=== PATIENT | male | born 1995 | race Caucasian/White ===

== ENCOUNTER 2023-12-02 11:04 | Emergency (ER) | payer BC, SELFPAY ==
[2023-12-02 11:12] VITALS: PULSE 72; O2SAT 99
[2023-12-02 11:15] VITALS: BP 151/95; PULSE 71; RESP 14; TEMP 36.8; O2SAT 100; BMI 29.8
--- NOTE | 2023-12-02 11:21 | CT_ITS ---
FINAL REPORT TECHNIQUE: After the administration of intravenous contrast, axial images were obtained through the abdomen and pelvis by computed tomography. This study was performed with technique to keep radiation doses as low as reasonably achievable, (ALARA). Individualized dose reduction techniques using automated exposure control or adjustment of the MA and/or KV according to the patient's size were employed. CLINICAL HISTORY: RLQ andRUQ abd pain FINDINGS: Abdomen: The lung bases are clear. The liver is fatty infiltrated. There is mild, nonspecific gallbladder wall thickening. The spleen is unremarkable. The adrenals are normal. The pancreas is unremarkable. The kidneys enhance appropriately. The aorta is normal in caliber. There is no free fluid or adenopathy. Pelvis: The appendix is not identified. There are no secondary findings of appendicitis. The urinary bladder is unremarkable. There is no free fluid or adenopathy. IMPRESSION: Fatty infiltration of the liver. Mild, nonspecific gallbladder wall thickening. Reviewed, Interpreted and Dictated by Husam Gonzalez III, MD Transcribed by Torrie Parrish Authenticated and [facility]
[2023-12-02 11:23] LABS: Microscopic, Urine URINE MICROSCOPIC (MICROSCOPIC)
[2023-12-02 11:29] LABS: Basophils # 0.1 K/mm3 (0-0.2); Basophils % 1.2 % (0.1-2.0); Eosinophils # 0.2 K/mm3 (0.0-0.4); Eosinophils % 2.6 % (0.1-12.0); Hematocrit 40.1 % (42.0-52.0); Hemoglobin 13.8 g/dL (14.1-18.0); Lymphocytes # 3.6 K/mm3 (0.7-4.5); Mean Corpuscular HGB Conc 34.4 g/dL (31.8-35.4); Mean Corpuscular Hemoglobin 30.9 pg (27.0-31.2); Mean Platelet Volume 7.7 fl (7.4-10.4); Monocytes % 10.4 % (1.7-9.3); Neutrophils # 4.6 K/mm3 (1.8-7.8); Neutrophils % 47.9 % (37.0-80.0); Platelet Count 274 K/mm3 (142-424); Red Blood Count 4.45 M/mm3 (4.60-6.20); Red Cell Distribution Width 13.8 % (11.5-17.5); White Blood Count 9.5 K/mm3 (4.8-10.8)
[2023-12-02 11:29] LABS: Appearance,Urine CLEAR (Clear); Bilirubin,Urine Negative (Negative); Blood, Urine Negative (Negative); Color,Urine YELLOW (Yellow); Glucose,Urine (UA) Negative (Negative); Ketones,Urine Negative (Negative); Leukocyte Esterase,Urine Negative (Negative); Nitrate,Urine Negative (Negative); PH,Urine 6.5 (5.0-8.5); Protein,Urine Negative (Negative); Specific Gravity, Urine 1.025 (1.005-1.030)
[2023-12-02] MEDS: KETOROLAC 30MG/ML VIAL 15 MG IV (11:36)
[2023-12-02] MEDS: ACETAMINOPHEN 1,000MG/100ML VIAL 1000 MG IV (11:36)
[2023-12-02 11:44] LABS: Chloride 101 mmol/L (98-107); Sodium 138 mmol/L (136-145)
[2023-12-02 11:45] LABS: Potassium 4.2 mmoL/L (3.5-5.1)
[2023-12-02 11:47] LABS: Alanine Aminotransferase 473 U/L (12-78); Albumin Level 4.2 g/dl (3.5-5.0); Albumin/Globulin Ratio 1.4 (1.1-1.8); Alkaline Phosphatase 115 U/L (38-126); Anion Gap 9.2 mEq/L (5-15); Aspartate Amino Transferase 323 U/L (17-59); Bilirubin,Total 0.6 mg/dl (0.2-1.3); Blood Urea Nitrogen 15 mg/dl (9-20); Calcium 9.1 mg/dl (8.4-10.2); Carbon Dioxide 32 mmol/L (22.0-30.0); Creatinine Clearance Estimated 114 mL/min (50-200); Estimated Glomerular Filt Rate 88 ml/min (>60); GFR (African American) 107 ML/MIN (>60); Globulin 2.9 g/dL (1.3-3.2); Glucose 109 mg/dl (74-100); Lipase 51 U/L (23-300); Total Protein,Serum 7.1 g/dl (6.3-8.2)
[2023-12-02 11:48] LABS: Lactic Acid 1.1 mmol/L (0.7-2.1)
--- NOTE | 2023-12-02 11:54 | ED_ITS ---
Discharge Plan Disposition Patient Disposition: Home, Self-Care Prescriptions Prescriptions: No Action No Known Home Medications Referrals Follow up/Referrals: Jeff Orellana MD [Primary Care Provider] - See instructions Activity Restrictions/Add. Instructions Additional Instructions/Restrictions: Follow-up with hepatology at [facility]. They will contact you to set up an appointment. Call your family doctor to establish care for this visit to the emergency department and schedule follow-up within 48 hours to ensure improvement. If you have any worsening of your condition or any other concerning signs or symptoms, return to the emergency department or your primary care doctor for further evaluation. Clinical Impressions Clinical Impression: Chronic hepatitis C, Abdominal pain, acute, right upper quadrant Instructions Patient Instructions: DI for Acute Abdominal Pain Discharge ED Provider: David Gomez General Adult HPI General Chief complaint: Abdominal Pain Stated complaint: Pain R abd and back, dizzy Time Seen by Provider: 12/02/23 11:19 Mode of Arrival: Wheelchair Source of Information: Patient Limitations: No Limitations Description of Symptoms (Recalled from ER Triage Doc. by RN): pt c/o R lower back pain, R flank pain and RLQ pain. pt reports the pain is 8/10 and shooting in nature. pt reports this has been ongoing x5 yrs. pt denies N/V/D or urinary symptoms. pt was seen in [facility] today, they sent him here for the ABD pain. pt reports he was in [facility] and dx with hep C that he was treated for. pt reports he then had more tattoo work done and was diagnosed a second time with hep C that has not been treated. History of Present Illness HPI narrative: Please note that above description of symptoms, in this electronic medical record under categorization of recalled from ER triage doctor by RN are reflective of an initial nursing assessment, however, is not reflective of my full history and physical exam that was personally taken and clarified. Consequentially, this preceding description of symptoms, which may include the patient's categorized chief complaint in the EMR, do not reflect my personal clinical impression, and the ultimate description of history of present illness and patient stated complaints should be deferred to this section of the note. Unless stated otherwise or congruent with this section of the note, additional signs, symptoms, or incongruence should be interpreted as inaccurate with my clinical impression. Related Data Home Medications Medication Instructions Recorded Confirmed No Known Home Medications 12/02/23 12/02/23 Allergies Allergy/AdvReac Type Severity Reaction Status Date / Time No Known Allergies Allergy Verified 12/02/23 11:20 [facility] Disclaimer: The information contained in this section may have been updated after the patient was seen, as this information can be updated by other users. Medical History (Updated 12/02/23 @ 14:07 by David Gomez MD) ADHD PTSD (post-traumatic stress disorder) Hepatitis C Surgical History (Updated 12/02/23 @ 09:44 by Sidra Marr MA) No history of previous surgery Social History (Updated 12/02/23 @ 09:45 by Sidra Marr MA) Smoking Status: Never smoker alcohol intake: never current occupational status: employed Travel in the last 8 weeks: None ROS Obtained: Yes All systems reviewed & no additional complaints except as documented Physical Exam General General appearance: alert and in no apparent distress Head Head exam: atraumatic and normocephalic Eye Eye exam: Present normal appearance, PERRL and EOMI ENT ENT exam: Present mucous membranes moist Neck Neck exam: Present normal inspection, full ROM and trachea midline Respiratory Respiratory exam: Absent respiratory distress, wheezes, stridor, accessory muscle use or prolonged expiratory phase Cardiovascular Cardiovascular exam: Present normal rhythm Abdominal Exam Abdominal exam: Present soft and tenderness; Absent distention, guarding, rebound or rigidity Extremities Exam Extremities exam: Absent edema Neurological Exam Neurological exam: Present alert, oriented X3, CN II-XII intact and normal gait; Absent motor sensory deficit Skin Skin exam: Present warm and dry; Absent diaphoresis or erythema Medical Decision Making Medical Records Medical records reviewed: Yes I reviewed the patient's medical records. Kurtis Inquiry Pt receiving controlled substance: No Kurtis was queried for this patient: No Vital Signs: 12/02/23 11:12 12/02/23 11:15 Temperature 98.2 F Temperature Source Oral Pulse Rate 72 Pulse Rate [Left] 71 Respiratory Rate 14 Blood Pressure [Right Arm] 151/95 H Blood Pressure Mean [Right Arm] 113 Blood Pressure Source [Right Arm] Automatic Cuff Blood Pressure Position [Right Arm] Sitting 02 Sat by Pulse Oximetry 99 100 Lab Data Lab Results 12/02/23 11:10: Urine Color Yellow, Urine Appearance Clear, Urine pH 6.5, Ur Specific [place] 1.025, Urine Protein Negative, Urine Glucose (UA) Negative, Urine Ketones Negative, Urine Blood Negative, Urine Nitrate Negative, Urine Bilirubin Negative, Urine Urobilinogen 1.0, Ur Leukocyte Esterase Negative, Urine RBC None, Urine WBC None, Ur Squamous Epith Cells Occasional, Amorphous Sediment Trace, Urine Bacteria None 12/02/23 11:20: WBC 9.5, RBC 4.45 L, Hgb 13.8 L, Hct 40.1 L, MCV 90.0, MCH 30.9, MCHC 34.4, RDW 13.8, Plt Count 274, MPV 7.7, Neut % (Auto) 47.9, Lymph % (Auto) 38.0, [place] % (Auto) 10.4 H, Eos % (Auto) 2.6, Baso % (Auto) 1.2, Neut # (Auto) 4.6, Lymph # (Auto) 3.6, [place] # (Auto) 1.0, Eos # (Auto) 0.2, Baso # (Auto) 0.1, Sodium 138, Potassium 4.2, Chloride 101, Carbon Dioxide 32 H, Anion Gap 9.2, BUN 15, Creatinine 1.00, Estimated Creat Clear 114, Estimated GFR 88, Est GFR ( Amer) 107, Glucose 109 H, Lactate 1.1, Calcium 9.1, Total Bilirubin 0.6, AST 323 H*, ALT 473 H*, Alkaline Phosphatase 115, Total Protein 7.1, Albumin 4.2, Globulin 2.9, Albumin/Globulin Ratio 1.4, Lipase 51 12/02/23 11:20 12/02/23 11:20 Orders (Tests/Meds): ED MEDICATIONS Generic Name Dose Route Start Last Admin Trade Name Freq PRN Reason Stop Dose Admin Sodium Chloride 10 ml 12/02/23 12:05 12/02/23 12:07 Sodium Chloride 0.9% 10ml Syr (Rad Only) IV 01/01/24 12:04 10 ml NEEDED PRN Administration Maintain IV Site Discontinued Medications Generic Name Dose Route Start Last Admin Trade Name Freq PRN Reason Stop Dose Admin Acetaminophen 1,000 mg 12/02/23 11:20 12/02/23 11:36 Acetaminophen 1,000mg/100ml Vial IV 12/02/23 11:21 1,000 mg ONCE ONE Administration Iopamidol 75 ml 12/02/23 12:05 12/02/23 12:07 Iopamidol-370 (76%);100ml Bottle IV 12/02/23 12:06 75 ml ONCE ONE Administration Ketorolac Tromethamine 15 mg 12/02/23 11:20 12/02/23 11:36 Ketorolac 30mg/Ml Vial IV 12/02/23 11:21 15 mg ONCE ONE Administration ORDERS Category Date Time Status CT abdomen pelvis w con Stat Cat Scan 12/02/23 11:21 Completed POCUS Point of Care (ER Only) Stat Exams 12/02/23 13:48 Completed CBC w/Auto Diff [Complete Blood Count Auto Diff] Stat Lab 12/02/23 11:20 Completed CMP [Comprehensive Metabolic Panel] Stat Lab 12/02/23 11:20 Completed HCV RNA PCR, Quant Stat Lab 12/02/23 11:30 Received Hepatitis Panel Stat Lab 12/02/23 11:30 Received Lactic Acid Stat Lab 12/02/23 11:20 Completed Lipase Stat Lab 12/02/23 11:20 Completed UA [Urinalysis and Microscopic] Stat Lab 12/02/23 11:10 Completed Medical Decision Narrative: 28-year-old male history of hep C from [facility] tattoo previously treated in 2019 and reinfected with hepatitis C presenting with right-sided chest wall pain/right upper quadrant pain. Been going on the past few days, getting worse. Patient states the pain is so severe he is having trouble walking, talking, breathing. No nausea or vomiting, fevers or chills, last bowel movement today was normal for him, no blood in his stool. No excessively dark urine. No unintended weight loss, night sweats, or otherwise. History was obtained via conversation with patient and chart review. On arrival, patient hemodynamically stable, alert, oriented x4, appropriate, GCS 15, moving all extremities spontaneously, pupils equal and reactive to light. Full physical exam performed and significant for appears to be in mild distress secondary to pain. Soft, tender right upper quadrant. No overlying skin changes. No guarding or signs of peritonitis. Mild right flank tenderness. Differential includes hepatitis, periostitis, cholecystitis, nephrolithiasis, pyelonephritis, gastritis, PUD, among others. Patient was given Toradol and acetaminophen for symptomatic management and correction of underlying abnormalities. Workup independently interpreted and significant for Nonactionable CBC. Chemistry with normal electrolytes, lactate negative. LFTs concerning for hepatitis with AST 323, ALT elevated at 473. Patient's bilirubin and alkaline phosphatase normal. Lipase normal. Urinalysis negative. CT abdomen and pelvis demonstrated no acute intra-abdominal pathology. Patient does have inflammation and some scarring of the liver with fatty infiltration, but otherwise normal. See radiology read for full review of final results. [id number] bedside ultrasound without acute intra-abdominal right upper quadrant pathology. Normal echogenicity of the liver. On reevaluation, patient resting comfortably in bed. Hepatitis C team at [facility] was contacted, case was discussed at length. Patient needs to follow-up with hepatology specifically at [facility] given reinfection. Hepatology at [facility] was contacted and case was discussed at length, patient appropriate for outpatient management and follow-up with them. Given patient presentation, workup, history, this most likely represents acute hepatitis right upper quadrant pain in the setting of chronic hepatitis C. Gastroenterology [facility] agreeable to outpatient management, will call patient to schedule follow-up appointment. Patient is agreeable this plan because patient at baseline without signs or symptoms of clinical decompensation, deemed appropriate for discharge. Results were relayed to patient who voiced understanding and were agreeable to outpatient management and follow up. I discussed my clinical impression with patient and answered all questions. At this time, the evidence for any other entities in the differential is insufficient to warrant any further testing or ED observation. This was explained as well. Advisory was given that persistent or worsening symptoms require further evaluation. I confirmed the understanding of this discussion. Chair Pad Maker disclaimer Much of this encounter note is an electronic director packaging spoken language to printed text. Electronic director packaging of the spoken language may permit errors. Although I have reviewed the note, some errors may still exist. Critical Care Critical Care Time Critical Care Time: No
[2023-12-02 11:58] LABS: Amorphous Sediment,Urine Trace /lpf; Squamous Epithelial Cell,Urine Occasional #/hpf (0-5)
[2023-12-02] MEDS: SODIUM CHLORIDE 0.9% 10ML SYR (RAD ONLY) 10 ML IV (12:07)
[2023-12-02] MEDS: IOPAMIDOL-370 (76%);100ML BOTTLE 75 ML IV (12:07)
[2023-12-02 14:00] VITALS: BP 125/93; PULSE 67; O2SAT 99
--- NOTE | 2023-12-02 14:04 | PC.NURSE ---
Called [facility] for consult on patient, and to get patient a follow up appt. They took patient information and will call back when they have a Dr for consult.
--- NOTE | 2023-12-02 14:21 | PC.NURSE ---
Dr Lo with called back and is speaking with Dr Gomez at this time
[2023-12-02 14:30] VITALS: BP 143/83; PULSE 71; O2SAT 99
[2023-12-02 14:47] VITALS: BP 143/83; PULSE 71; RESP 14; TEMP 36.8; O2SAT 99
[2023-12-04 22:10] LABS: HBsAg Screen Negative (Negative); HCV Ab Reactive (Non Reactive); HCV RNA (International Units) 10200000 IU/mL (.); Hep A Ab, IGM Negative (Negative); Hep B Core Ab, IgM Negative (Negative)
== END 2023-12-02 14:47 | disposition home or self-care (01) ==
PROVIDERS: Emergency Provider Emergency Medicine; PCP Family Medicine
DX: R10.11 Right upper quadrant pain (principal); B18.2 Chronic viral hepatitis C; M54.59 Other low back pain
CPT/HCPCS: 74177; 80053; 80074; 81001; 83605; 83690; 85025; 87522; 96374; 96375; 99285; J0131; J1885; Q9967